=== PATIENT | male | born 1980 | race Caucasian/White ===

== ENCOUNTER 2020-08-24 11:57 | Emergency (ER) | payer OTHER ==
[~2020-08-24 11:57] MED LIST: BACTROBAN NASAL1 GM TOP; BENTYL10 MG PO; CLOTRIMAZOLE TOP; DIFLUCAN 100MG100 MG PO; KEFLEX500 MG PO
[2020-08-24] MEDS ORDERED: BACTRIM DS TAB1 EACH PO (13:40)
== END 2020-08-24 14:10 | disposition home or self-care (01) ==
LOC: FER 11:57
DX: K61.1 Rectal abscess (principal); F17.200 Nicotine dependence, unspecified, uncomplicated

== ENCOUNTER 2021-12-16 23:25 | Emergency (ER) | payer OTHER ==
[~2021-12-16 23:25] MED LIST changes: +BACTRIM DS TAB1 EACH PO
[2021-12-17] LABS: INR 0.89 (0.9-1.2); PROTHROMBIN TIME 11.8 SECONDS (11.9-13.9)
[2021-12-17 00:17] LABS: BASOPHIL 0.3 % (0-2); EOSINOPHIL 0.1 % (0-5); HCT 37.7 % (42.0-52.0); HGB 14.6 g/dl (13.2-18.0); LYMPHOCYTE 6.4 % (15-48); MCH 32.8 pg (25.0-31.0); MCHC 38.7 g/dL (32.0-36.0); MCV 84.7 fL (78.0-100.0); MONOCYTE 8.8 % (0-12); MPV 10.3 fL (6.0-9.5); NEUTROPHIL 83.3 % (41-80); NRBC 0; PLT 139 K/uL (150-400); RBC 4.45 M/uL (4.70-6.00); RDW 12.4 % (11.5-14.0); WBC 15.5 K/uL (4.0-10.5)
[2021-12-17 00:53] LABS: ALBUMIN 3.5 g/dL (3.4-5.0); BILIRUBIN - TOTAL 1.3 mg/dL (0.2-1.0); BUN/CREAT RATIO (CALC) 9.4 RATIO; CREATININE 0.64 mg/dL (0.67-1.17); GLOBULIN (CALCULATION) 3.7 g/dL; MAGNESIUM 2.1 mg/dL (1.8-2.4); TOTAL PROTEIN 7.2 g/dL (6.4-8.2)
== END 2021-12-17 01:06 ==
LOC: FER 23:25
PROVIDERS: Emergency Medicine
DX: S06.6X0A Traumatic subarachnoid hemorrhage without loss of consciousness, initial encounter (principal); S02.40FA Zygomatic fracture, left side, initial encounter for closed fracture; E87.1 Hypo-osmolality and hyponatremia; E87.6 Hypokalemia; M62.82 Rhabdomyolysis; F10.129 Alcohol abuse with intoxication, unspecified; W19.XXXA Unspecified fall, initial encounter; Y92.524 Gas station as the place of occurrence of the external cause; Y90.5 Blood alcohol level of 100-119 mg/100 ml
CPT/HCPCS: 36415; 70450; 80053; 82140; 82550; 83605; 83690; 83735; 84145; 84484; 85025; 85610; 93005; G0480; J1953; J2060; J3411; J3480; J7030

== ENCOUNTER 2022-01-26 13:44 | Emergency (ER) | payer OTHER ==
[2022-01-26 15:23] LABS: BASOPHIL 1.1 % (0-2); EOSINOPHIL 2.5 % (0-5); HCT 40.4 % (42.0-52.0); HGB 13.1 g/dl (13.2-18.0); LYMPHOCYTE 19.4 % (15-48); MCH 29.9 pg (25.0-31.0); MCHC 32.4 g/dL (32.0-36.0); MCV 92.2 fL (78.0-100.0); MONOCYTE 6.6 % (0-12); MPV 9.2 fL (6.0-9.5); NEUTROPHIL 70.2 % (41-80); NRBC 0; PLT 296 K/uL (150-400); RBC 4.38 M/uL (4.70-6.00); RDW 14.3 % (11.5-14.0); WBC 9.1 K/uL (4.0-10.5)
[2022-01-26 15:34] LABS: BUN/CREAT RATIO (CALC) 6.9 RATIO; CREATININE 1.01 mg/dL (0.67-1.17); POTASSIUM 3.4 mmol/L (3.5-5.1)
[2022-01-26] MEDS ORDERED: FIORICET1 EACH PO (16:26)
[2022-01-26] MEDS ORDERED: PROTONIX 40MG T40 MG PO (16:28)
== END 2022-01-26 17:06 | disposition home or self-care (01) ==
LOC: FER 13:44
PROVIDERS: Nurse Practitioner Family
DX: G43.909 Migraine, unspecified, not intractable, without status migrainosus (principal); Z20.822 Contact with and (suspected) exposure to COVID-19
CPT/HCPCS: 36415; 70450; 80048; 85025; U0002

== ENCOUNTER 2022-02-16 22:00 | Emergency (ER) | payer OTHER ==
[~2022-02-16 22:00] MED LIST changes: +FIORICET1 EACH PO; +PROTONIX 40MG T40 MG PO
[2022-02-16 22:22] LABS: BASOPHIL 0.8 % (0-2); EOSINOPHIL 0.5 % (0-5); HCT 44.7 % (42.0-52.0); HGB 15.3 g/dl (13.2-18.0); LYMPHOCYTE 42.4 % (15-48); MCH 28.9 pg (25.0-31.0); MCHC 34.2 g/dL (32.0-36.0); MCV 84.5 fL (78.0-100.0); MONOCYTE 5.7 % (0-12); MPV 9.9 fL (6.0-9.5); NEUTROPHIL 50.3 % (41-80); NRBC 0; PLT 289 K/uL (150-400); RBC 5.29 M/uL (4.70-6.00); RDW 12.8 % (11.5-14.0); WBC 6.6 K/uL (4.0-10.5)
[2022-02-16 22:54] LABS: ACETAMINOPHEN (TYLENOL) < 2.0 ug/mL (10.0-30.0); ALBUMIN 3.8 g/dL (3.4-5.0); ALKALINE PHOSHATASE 75 U/L (46-116); ALT 27 U/L (16-63); AST 35 U/L (15-37); BILIRUBIN - TOTAL 0.4 mg/dL (0.2-1.0); BUN 13 mg/dL (7-18); CHLORIDE 98 mmol/L (98-107); CO2 (BICARBONATE) 28 mmol/L (21-32); CREATININE 0.62 mg/dL (0.67-1.17); GLUCOSE 111 mg/dL (74-106); TOTAL PROTEIN 7.8 g/dL (6.4-8.2)
[2022-02-16 23:33] LABS: CORONAVIRUS 2019 SARS-COV-2 NEGATIVE (NEGATIVE); INFLUENZA A NAA NEGATIVE (NEGATIVE)
[2022-02-17 00:08] LABS: AMPHETAMINES NEGATIVE (NEGATIVE); BARBITURATES NEGATIVE (NEGATIVE); ECSTASY (MDMA) NEGATIVE (NEGATIVE); MARIJUANA (THC) NEGATIVE (NEGATIVE); METHADONE NEGATIVE (NEGATIVE); OPIATES NEGATIVE (NEGATIVE); OXYCODONE NEGATIVE (NEGATIVE)
[2022-02-17 10:49] LABS: BASOPHIL 1.1 % (0-2); EOSINOPHIL 0.6 % (0-5); HCT 41.6 % (42.0-52.0); HGB 14.2 g/dl (13.2-18.0); LYMPHOCYTE 24.3 % (15-48); MCHC 34.1 g/dL (32.0-36.0); MCV 84.9 fL (78.0-100.0); MONOCYTE 4.9 % (0-12); MPV 10.3 fL (6.0-9.5); NEUTROPHIL 68.9 % (41-80); NRBC 0; PLT 248 K/uL (150-400); RDW 12.8 % (11.5-14.0); WBC 8.8 K/uL (4.0-10.5)
[2022-02-17 11:09] LABS: ALBUMIN 3.5 g/dL (3.4-5.0); BILIRUBIN - TOTAL 0.3 mg/dL (0.2-1.0); BUN/CREAT RATIO (CALC) 29.9 RATIO; CREATININE 0.67 mg/dL (0.67-1.17); GLOBULIN (CALCULATION) 3.4 g/dL; POTASSIUM 3.2 mmol/L (3.5-5.1); TOTAL PROTEIN 6.9 g/dL (6.4-8.2)
== END 2022-02-17 15:05 | disposition other institution (70) ==
LOC: FER 22:00
PROVIDERS: Emergency Medicine
DX: R45.851 Suicidal ideations (principal); F10.129 Alcohol abuse with intoxication, unspecified; F17.200 Nicotine dependence, unspecified, uncomplicated; Y90.8 Blood alcohol level of 240 mg/100 ml or more; Z20.822 Contact with and (suspected) exposure to COVID-19; Z28.310 Unvaccinated for COVID-19
CPT/HCPCS: 36415; 80053; 80305; 85025; G0480; J2405; U0002